=== PATIENT | female | born 1980 | race Asian ===

== ENCOUNTER 2020-01-04 17:20 | Emergency (ER) | payer BC ==
[~2020-01-04] VITALS: Ht 149.9 cm; Wt 52.7 kg
[~2020-01-04 17:20] MED LIST: IBUP-1222 PO; OXYC-302 PO
--- NOTE | 2020-01-04 17:24 | NUR ---
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
[2020-01-04] MEDS ORDERED: IBUPROFEN 600 MG TABLET PO ONE (18:30)
--- NOTE | 2020-01-04 18:41 | NUR ---
pt ambulates well to bathroom independently. Back in bed for lab draw at this time.
[2020-01-04 18:50] LABS: BASOPHILS # (AUTO) 0.02 x10^3/uL (0-0.1); BASOPHILS % (AUTO) 0 % (0-1); EOSINOPHILS # (AUTO) 0.04 x10^3/uL (0-0.4); EOSINOPHILS % (AUTO) 1 % (1-7); LYMPHOCYTES # (AUTO) 1.39 x10^3/uL (1-3.4); LYMPHOCYTES % (AUTO) 19 % (22-44); MD NO; MEAN CORPUSCULAR HEMOGLOBIN 26.2 pg (27.0-34.8); MEAN CORPUSCULAR HGB CONC 32.7 g/dL (32.4-35.8); MEAN CORPUSCULAR VOLUME 80.1 fL (80-100); MEAN PLATELET VOLUME 7.3 fL (7.4-10.4); MONOCYTES # (AUTO) 0.51 x10^3/uL (0.2-0.8); MONOCYTES % (AUTO) 7 % (2-9); NEUTROPHILS # (AUTO) 5.51 x10^3/uL (1.8-6.8); NEUTROPHILS % (AUTO) 74 % (42-75); PLATELET COUNT 327 x10^3/uL (130-400); RED BLOOD COUNT 4.96 x10^6/uL (3.82-5.3)
[2020-01-04 19:09] LABS: ALBUMIN 3.7 g/dL (3.4-5.0); ANION GAP 7 mmol/L (5-15); CALCIUM 8.8 mg/dL (8.5-10.1); CHLORIDE 108 mmol/L (98-107); CREATININE 0.63 mg/dL (0.55-1.02)
[2020-01-04] MEDS ORDERED: IBUPROFEN 600 MG TABLET ONE (19:10)
[2020-01-04 19:12] LABS: TROPONIN I < 0.015 ng/mL (0.000-0.045)
[2020-01-04 19:59] VITALS: BP 126/69
== END 2020-01-04 20:00 | disposition home or self-care (01) ==
LOC: ED 18:40
DX: M94.0 Chondrocostal junction syndrome [Tietze] (principal)
CPT/HCPCS: 36415; 71045; 80048; 82040; 84484; 85025; 93005; 99285